=== PATIENT | female | born 1975 | race Caucasian/White ===

== ENCOUNTER 2017-02-27 11:37 | Emergency (ER) | payer SELFPAY ==
--- NOTE | 2017-02-27 12:51 | ED PDOC ---
HPI: Psych/Substance Abuse Time Seen by Provider: 02/27/17 11:58 Chief Complaint (Nursing): Psychiatric Evaluation History Per: Patient History/Exam Limitations: no limitations Onset/Duration Of Symptoms: Gradual Current Symptoms Are (Timing): Still Present Modifying Factor(s): None, Alcohol Severity: Moderate Associated Symptoms: Depression. denies: Anger, Anxiety, Agitation, Suicidal Thoughts, Suicidal Plan Involuntary Hold By: None Additional History Per: Patient Additional Complaint(s): pt. into ER via EMS c/o feeling depressed and drinking alot in the past few days. denies any suicidal/homicidal ideations at present. Past Medical History Reviewed: Historical Data, Nursing Documentation, Vital Signs Vital Signs: Last Vital Signs Temp 97.0 F L 02/27/17 11:44 Pulse 91 H 02/27/17 11:44 Resp 18 02/27/17 11:44 BP 109/75 02/27/17 11:44 Pulse Ox 99 02/27/17 11:44 - Medical History PMH: No Chronic Diseases - Family History Family History: States: Unknown Family Hx - Living Arrangements Living Arrangements: With Family - Social History Current smoker - smoking cessation education provided: No - Allergies Allergies/Adverse Reactions: Allergies Allergy/AdvReac Type Severity Reaction Status Date / Time Sulfa (Sulfonamide Allergy RASH Verified 02/27/17 11:44 Antibiotics) Review of Systems ROS Statement: Except As Marked, All Systems Reviewed And Found Negative Constitutional: Negative for: Fever, Chills Cardiovascular: Negative for: Chest Pain, Palpitations Respiratory: Negative for: Cough, Shortness of Breath Gastrointestinal: Negative for: Nausea, Vomiting, Abdominal Pain Skin: Negative for: Rash Neurological: Negative for: Weakness, Numbness, Altered Mental Status, Headache , Dizziness Psych: Positive for: Depression. Negative for: Psychosis, Suicidal ideation, Withdrawal Physical Exam - Reviewed Nursing Documentation Reviewed: Yes Vital Signs Reviewed: Yes - Physical Exam Appears: Positive for: Uncomfortable (strong etoh on breath) Head Exam: Positive for: ATRAUMATIC, NORMAL INSPECTION, NORMOCEPHALIC Eye Exam: Positive for: Normal appearance, EOMI, PERRL Neck: Positive for: Normal, Painless ROM, Supple Cardiovascular/Chest: Positive for: Regular Rate, Rhythm, Chest Non Tender. Negative for: Edema, Gallop Respiratory: Positive for: Normal Breath Sounds Gastrointestinal/Abdominal: Positive for: Normal Exam, Bowel Sounds, Soft. Negative for: Tenderness Back: Positive for: Normal Inspection. Negative for: L CVA Tenderness, R CVA Tenderness Extremity: Positive for: Normal ROM. Negative for: Tenderness, Pedal Edema Neurologic/Psych: Positive for: Alert, tongue and groove machine operator II-XII, Oriented, Mood/Affect (flat) , Cerebellar Tests (nml). Negative for: Motor/Sensory Deficits - ECG O2 Sat by Pulse Oximetry: 99 Disposition - Clinical Impression Clinical Impression: Depressed - Patient ED Disposition Is Patient to be Admitted: Transfer of Care Counseled Patient/Family Regarding: Studies Performed, Diagnosis - Disposition Disposition Time: 15:12 Condition: STABLE Forms: Interview Rocket (Welsh) Patient Signed Over To: Kimi Baez
[2017-02-27] MEDS ORDERED: Sodium Chloride 0.9% 1,000 ML IV STA (15:12)
--- NOTE | 2017-02-27 15:19 | ED PDOC ---
- Laboratory Results Result Diagrams: 02/27/17 15:14 02/27/17 15:14 - ECG O2 Sat by Pulse Oximetry: 99 (RA) Pulse Ox Interpretation: Normal Medical Decision Making Medical Decision Making: Time: 15:14 Patient endorsed to me by Dr. Dubon pending ER workup, re-evaluation and ER disposition. 6p Pt lucid. Requesting IVF hydration 9p Evaluated by reclamation worker Stable for discharge with therapy follow up Pt with no signs of withdrawal. Scribe Attestation: Documented by Ammon Brooks, acting as a scribe for Kimi Baez MD Provider Scribe Attestation: All medical record entries made by the Scribe were at my direction and personally dictated by me. I have reviewed the chart and agree that the record accurately reflects my personal performance of the history, physical exam, medical decision making, and the department course for this patient. I have also personally directed, reviewed, and agree with the discharge instructions and disposition. Disposition Counseled Patient/Family Regarding: Studies Performed, Diagnosis, Need For Followup - Clinical Impression Clinical Impression: Depressed, Alcohol abuse - POA Present On Arrival: None - Disposition Referrals: Alcoholics Anonymous [Outside] Disposition: Routine/Home Disposition Time: 20:59 Condition: STABLE Additional Instructions: FOLLOW UP INSTRUCTED BY REVENUE STAMPER Prescriptions: chlordiazePOXIDE [Chlordiazepoxide HCl] 25 mg PO QID PRN #10 cap PRN Reason: alcohol withdrawal symptoms Instructions: Depression (ED), Abuse of Alcohol (ED)
[2017-02-27 15:38] LABS: BASO % 0.1 % (0.0-2.0); EOS % 0.2 % (0.0-4.0); HEMOGLOBIN 14.6 g/dL (12.0-16.0); LYMPH # 2.2 K/uL (1.0-4.3); LYMPH % 46.3 % (20.0-40.0); MEAN CELL VOLUME 88.2 fl (81.0-99.0); MEAN CORPUSCULAR HEMOGLOBIN 29.5 pg (27.0-31.0); MEAN CORPUSCULAR HGB CONC 33.4 g/dL (33.0-37.0); MEAN PLATELET VOLUME 8.2 fl (7.2-11.7); MONO # 0.2 K/uL (0.0-0.8); MONO % 4.5 % (0.0-10.0); NEUT # 2.3 K/uL (1.8-7.0); NEUT % 48.9 % (50.0-75.0); NRBC % 0.2 % (0.0-0.0); RBC 4.96 Mil/uL (3.80-5.20); RED CELL DISTRIBUTION WIDTH 14.1 % (11.5-14.5); WHITE BLOOD COUNT 4.7 K/uL (4.8-10.8)
[2017-02-27 15:52] LABS: ACETAMINOPHEN < 10.0 ug/ml (10.0-30.0); ALB/GLOB RATIO 1.2 (1.0-2.1); ALBUMIN 4.6 g/dL (3.5-5.0); ALT/SGPT 149 U/L (9-52); AST/SGOT 210 U/L (14-36); BLOOD UREA NITROGEN 7 mg/dl (7-17); CALCIUM 8.5 mg/dL (8.4-10.2); GFR AFRICAN-AMERICAN > 60; GFR NON-AFRICAN AMERICAN > 60; SALICYLATE < 1.0 mg/dl
[2017-02-27] MEDS ORDERED: Multivitamin (MVI) 10 ML, Thiamine 100 MG in Dextrose 5%/0.45% NS 1,000 ML IV ONE (17:33)
[2017-02-27] MEDS ORDERED: DiphenhydrAMINE 50 mg/ml Inj IVP STA (21:02)
[2017-02-27] MEDS ORDERED: DiphenhydrAMINE 50 mg/ml Inj ONE (21:21)
[2017-02-27] MEDS ORDERED: Promethazine 25 MG in Sodium Chloride 0.9% 100 ML IM ONE (21:30)
[2017-02-27 22:55] VITALS: O2SAT 99
[2017-02-27 23:00] VITALS: BP 119/78; PULSE 98; RESP 18; TEMP 97.9
== END 2017-02-27 22:45 | disposition home or self-care (01) ==
LOC: H.ER 11:37
DX: F32.9 Major depressive disorder, single episode, unspecified (principal); Z00.8 Encounter for other general examination
CPT/HCPCS: 80053; 81025; 82948; 85025; 96361; 96374; 96375; 96376; 99285; G0480; J1200; J2405; J2550; J3411; J7040; J7042